=== PATIENT | female | born 1945 | race Caucasian/White ===

== ENCOUNTER → 2017-07-19 | Outpatient (CLI) | payer MEDICARE, OTHER ==
[~2017-07-19] MED LIST: GUAI-103 PO; LACT1CAP35 PO; LEVO137T3 PO; NAPR220C2 PO
[2017-07-19 11:05] LABS: BASOPHILS # (AUTO) 0.04 x10^3/uL (0-0.1); BASOPHILS % (AUTO) 1 % (0-1); EOSINOPHILS # (AUTO) 0.12 x10^3/uL (0-0.4); EOSINOPHILS % (AUTO) 1 % (1-7); LYMPHOCYTES # (AUTO) 2.21 x10^3/uL (1-3.4); LYMPHOCYTES % (AUTO) 25 % (22-44); MD NO; MEAN CORPUSCULAR HEMOGLOBIN 30.6 pg (27.0-34.8); MEAN CORPUSCULAR HGB CONC 33.3 g/dL (32.4-35.8); MEAN CORPUSCULAR VOLUME 91.8 fL (80-100); MEAN PLATELET VOLUME 8.9 fL (7.4-10.4); MONOCYTES % (AUTO) 8 % (2-9); NEUTROPHILS # (AUTO) 5.73 x10^3/uL (1.8-6.8); NEUTROPHILS % (AUTO) 65 % (42-75); PLATELET COUNT 238 x10^3/uL (130-400)
[2017-07-19 11:14] LABS: INTERNATIONAL NORMALIZED RATIO 1.04 (0.93-1.1); PROTHROMBIN TIME 10.8 Seconds (9.6-11.5)
[2017-07-19 11:19] LABS: CHLORIDE 105 mmol/L (98-107)
[2017-07-19 11:20] LABS: ANION GAP 8 mmol/L (5-15); CALCIUM 9.5 mg/dL (8.5-10.1); CREATININE 0.65 mg/dL (0.55-1.02)
[2017-07-19 12:29] LABS: HEMOGLOBIN A1C 5.2 % (4.2-6.3)
== END | disposition home or self-care (01) ==
LOC: STAR 09:35
PROVIDERS: ATTEND Orthopaedic Surgery
DX: Z01.818 Encounter for other preprocedural examination (principal); M17.11 Unilateral primary osteoarthritis, right knee; R79.89 Other specified abnormal findings of blood chemistry; M17.12 Unilateral primary osteoarthritis, left knee; E07.9 Disorder of thyroid, unspecified; Z11.4 Encounter for screening for human immunodeficiency virus [HIV]
CPT/HCPCS: 36415; 80048; 83036; 85025; 85610; 85730; 86703; 87081; 87899; 93005; G0435

== ENCOUNTER 2017-07-24 07:23 | Inpatient (IN) | payer MEDICARE, OTHER ==
[~2017-07-24] VITALS: Ht 165.1 cm; Wt 115.4 kg
[2017-07-24] MEDS ORDERED: VANCOMYCIN PER PHARMACY MC STA (07:34)
[2017-07-24] MEDS ORDERED: EPHEDRINE 50 MG/ML, 1ML IVPush PRN (08:00)
[2017-07-24] MEDS ORDERED: ONDANSETRON 2MG/ML, 2ML IVPush PRN (08:00)
[2017-07-24] MEDS ORDERED: LABETALOL 5MG/ML, 20ML IV PRN (08:00)
[2017-07-24] MEDS ORDERED: OXYcodone 5 MG/5 ML ORAL.SOL UDC PO PRN (08:00)
[2017-07-24] MEDS ORDERED: FENTANYL PF 100 MCG/2ML IV PRN (08:00)
[2017-07-24] MEDS ORDERED: hydrALAzine 20 MG/ML, 1ML IV PRN (08:00)
[2017-07-24] MEDS ORDERED: VANCOMYCIN 1,500 MG in SODIUM CHLORIDE 0.9% 250 ML IV ONE (08:00)
[2017-07-24] MEDS ORDERED: ALBUTEROL SULFATE 2.5 MG/3 ML NPPB PRN (08:00)
[2017-07-24] MEDS ORDERED: HYDROmorphone 1 MG/ML, 1ML IV PRN ×2 (08:00→09:30)
[2017-07-24] MEDS ORDERED: METOPROLOL 1 MG/ML, 5ML IV PRN (08:00)
[2017-07-24] MEDS ORDERED: ACETAMINOPHEN 325 MG TABLET PO PRN (08:00)
[2017-07-24] MEDS ORDERED: LACTATED RINGERS 1,000 ML IV SCH (08:01)
[2017-07-24] MEDS ORDERED: GABAPENTIN 300 MG CAPSULE PO ONE (08:02)
[2017-07-24] MEDS ORDERED: ACETAMINOPHEN 500 MG TABLET PO ONE (08:04)
[2017-07-24] MEDS ORDERED: ACETAMINOPHEN 500 MG TABLET ONE (08:15)
[2017-07-24] MEDS ORDERED: GABAPENTIN 300 MG CAPSULE ONE (08:15)
[2017-07-24] MEDS ORDERED: FENTANYL PF 250 MCG/5ML ONE (08:28)
[2017-07-24] MEDS ORDERED: MIDAZOLAM 1 MG/ML, 2ML ONE (08:28)
[2017-07-24] MEDS ORDERED: ONDANSETRON 2MG/ML, 2ML ONE (08:45)
[2017-07-24] MEDS ORDERED: ROCURONIUM 10 MG/ML,10ML ONE (08:45)
[2017-07-24] MEDS ORDERED: PROPOFOL 10 MG/ML, 20ML ONE (08:45)
[2017-07-24] MEDS ORDERED: CEFAZOLIN 1,000 MG ONE ×2 (08:45)
[2017-07-24] MEDS ORDERED: KETOROLAC 60 MG/2 ML ONE (09:04)
[2017-07-24] MEDS ORDERED: TRANEXAMIC ACID 100 MG/ML, 10ML ONE ×4 (09:04)
[2017-07-24] MEDS ORDERED: SODIUM CHLORIDE 0.9% 100 ML ONE (09:05)
[2017-07-24] MEDS ORDERED: ROPIvacaine/PF 0.2%, 20 ML ONE (09:05)
[2017-07-24] MEDS ORDERED: EPINEPHRINE 1 MG/ML, 1ML ONE (09:05)
[2017-07-24] MEDS ORDERED: NEOSTIGMINE 1 MG/ML, 10ML ONE (09:21)
[2017-07-24] MEDS ORDERED: GLYCOPYRROLATE 0.2MG/1ML, 5ML ONE (09:21)
[2017-07-24] MEDS ORDERED: MAGNESIUM HYDROXIDE 8%, 30ML UDC PO PRN (09:30)
[2017-07-24] MEDS ORDERED: TRANEXAMIC ACID 1,000 MG in SODIUM CHLORIDE 0.9% 100 ML IVPB ONE (09:30)
[2017-07-24] MEDS ORDERED: DIPHENHYDRAMINE 25 MG CAPSULE PO PRN (09:30)
[2017-07-24] MEDS ORDERED: OXYcodone IR 5MG TABLET PO PRN (09:30)
[2017-07-24] MEDS ORDERED: ONDANSETRON 2MG/ML, 2ML IV PRN (09:30)
[2017-07-24] MEDS ORDERED: ACETAMINOPHEN 650 MG/20.3 ML UDC PO PRN (09:30)
[2017-07-24] MEDS ORDERED: ONDANSETRON 4 MG TABLET PO PRN (09:30)
[2017-07-24] MEDS ORDERED: ALUMINUM/MAG/SIMETHICONE 30 ML UDC PO PRN (09:30)
[2017-07-24] MEDS ORDERED: DIAZEPAM 5 MG TABLET PO PRN (09:30)
[2017-07-24] MEDS ORDERED: ACETAMINOPHEN 650 MG/20.3 ML UDC ONE (11:33)
[2017-07-24] MEDS ORDERED: OXYcodone 5 MG/5 ML ORAL.SOL UDC ONE (11:33)
[2017-07-24] MEDS: D5%-0.45NACL+KCL 20MEQ 1,000 ML IV SCH (16:18)
[2017-07-24] MEDS: LEVOTHYROXINE 137 MCG TABLET PO SCH (16:18)
[2017-07-24] MEDS ORDERED: CEFAZOLIN 2,000 MG in DEXTROSE 5% 50 ML IVPB SCH (16:30)
[2017-07-24] MEDS ORDERED: CEFAZOLIN 2,000 MG in SODIUM CHLORIDE 0.9% 50 ML IVPB SCH (17:00)
[2017-07-24] MEDS: ASPIRIN 81 MG TABLET EC PO SCH (17:57)
[2017-07-24 19:56] VITALS: BP 106/80
[2017-07-24] MEDS: GABAPENTIN 300 MG CAPSULE PO SCH (20:41)
[2017-07-24 23:28] VITALS: BP 114/72
[2017-07-25] MEDS: D5%-0.45NACL+KCL 20MEQ 1,000 ML IV SCH ×2 (01:45→11:14)
[2017-07-25 02:48] VITALS: BP 103/56
[2017-07-25] MEDS: ASPIRIN 81 MG TABLET EC PO SCH (05:35)
[2017-07-25] MEDS: LEVOTHYROXINE 137 MCG TABLET PO SCH (05:36)
[2017-07-25 06:39] VITALS: BP 111/67
[2017-07-25] MEDS: GABAPENTIN 300 MG CAPSULE PO SCH (08:45)
[2017-07-25] MEDS ORDERED: TAMSULOSIN 0.4 MG CAP.ER.24H PO SCH (09:00)
[2017-07-25] MEDS ORDERED: KETOROLAC 30 MG/1 ML IV SCH (09:30)
[2017-07-25 10:53] VITALS: BP 99/53
[2017-07-25] MEDS ORDERED: ASPI-621 PO (11:24)
[2017-07-25] MEDS ORDERED: DOCU-131 PO (11:41)
[2017-07-25] MEDS ORDERED: DIAZ5TAB PO (11:42)
[2017-07-25] MEDS ORDERED: ONDA4TAB10 PO (11:42)
[2017-07-25] MEDS ORDERED: TRAM50TA2 PO (11:43)
[2017-07-25] MEDS ORDERED: GABA300C10 PO (11:44)
[2017-07-25] MEDS ORDERED: OXYC5CAP2 PO (11:57)
== END 2017-07-25 12:09 | disposition home or self-care (01) | DRG 470 ==
LOC: ORIP 07:23 → 4NOR 12:15 → DCLOUNGE 07-25 11:56
PROVIDERS: ADMIT Orthopaedic Surgery; ATTEND Orthopaedic Surgery
PROC: 0SRC069 Replacement of Right Knee Joint with Oxidized Zirconium on Polyethylene Synthetic Substitute, Cemented, Open Approach (ICD-10-PCS; principal; 2017-07-24 09:30)
DX: M17.11 Unilateral primary osteoarthritis, right knee (principal); Z88.8 Allergy status to other drugs, medicaments and biological substances
CPT/HCPCS: 36415; 85014; 85018; C1713; J0171; J0690; J1885; J2250; J2405; J2704; J2710; J2795; J3010; J3370; J3490; C1776; J3480; J7050